=== PATIENT | female | born 1990 | race Caucasian/White ===

== ENCOUNTER 2021-07-21 10:13 | Emergency (ER) | payer MEDICAID ==
[~2021-07-21] VITALS: Ht 160 cm; Wt 77.0 kg
[2021-07-21 10:26] VITALS: BP 103/70
[2021-07-21] MEDS ORDERED: IPRATROPIUM BROMIDE (0.02%) 0.5MG/2.5ML NEB HHN STA (10:28)
[2021-07-21] MEDS ORDERED: METHYLPREDNISOLONE SOD SUCC 125 MG/2 ML VIAL IM STA (10:28)
[2021-07-21] MEDS ORDERED: ALBUTEROL (0.083%) 2.5MG/3ML NEB HHN STA (10:28)
[2021-07-21] MEDS ORDERED: ALBU6.7H9 IH (10:30)
[2021-07-21] MEDS ORDERED: FLUT1DIS2 IH (10:30)
[2021-07-21] MEDS ORDERED: IBUPROFEN 600MG TABLET PO STA (11:51)
[2021-07-21] MEDS ORDERED: ALBUTEROL (0.083%) 2.5MG/3ML NEB HHN SCH (12:35)
[2021-07-21] MEDS ORDERED: IPRATROPIUM BROMIDE (0.02%) 0.5MG/2.5ML NEB ONE (12:41)
== END 2021-07-21 14:45 | disposition left against medical advice (07) ==
LOC: ER 10:35
DX: J45.901 Unspecified asthma with (acute) exacerbation (principal)
CPT/HCPCS: 71045; 93005; 94640; 99283; Z7610